=== PATIENT | female | born 1930 | race Caucasian/White ===

== ENCOUNTER 2016-09-25 20:29 | Emergency (ER) | payer OTHER, MEDICARE, BC ==
[~2016-09-25] VITALS: Ht 165.1 cm; Wt 68.7 kg
[2016-09-25 20:42] VITALS: Ht 165.1 cm; Wt 68.7 kg
--- NOTE | 2016-09-25 21:07 | ERPDOC ---
Departure Disposition Decision Date: September 25, 2016 Disposition Decision Time: 21:58 Disposition: 01 DISCHARGED HOME, SELF-CARE Impression Impression Impression: Primary Impression: Distal radius fracture, right Encounter type: initial encounter Fracture type: closed Fracture morphology : unspecified fracture morphology Qualified Codes: S52.501A - Unspecified fracture of the lower end of right radius, initial encounter for closed fracture Severity: Moderate Condition: Stable Seen By: Mid-level only Patient Instructions: Arm Fracture in Adults (ED) Problems/Meds/Labs Reviewed?: Yes Medications reviewed and manag: Yes Additional Instructions: Ice and elevate the wrist. Wear the splint until you follow up with the orthopedist next week. When you get home contact your primary care provider so that you can be evaluated by orthopedist early next week. May use the [place] as needed for severe pain. Follow up care ordered?: Yes Mental Status: Alert Scripts Hydrocodone/Acetaminophen ([place] 5-325 Tablet) 5-325 Tablet 1 TAB PO Q6H Y for PAIN, #12 TAB 0 Refills Prov: FRANCINE HANDY Rosalina BRADSHAW 09/25/16 HPI General Chief Complaint: Upper Extremity Injury Stated Complaint: FELL,RIGHT WRIST PAIN Time Seen by Provider: 20:49 Source: patient Exam Limitations: no limitations HPI Hand/Forearm Initial Comments [place] her connecting flight. She fell and has had pain and bruising in the right wrist since her fall. She did not have it looked at while she was in the airport. This happened about 1330 today. Has had some slight numbness in the right hand since the fall but this is getting better. Occurred At: home Onset: Rapid Duration: 6-12 hrs (8 hours ago) Severity: moderate Location: right: wrist Method of Injury: fell Associated Symptoms: bruising, numbness, pain with extension, pain with flexion , swelling, DENIES: pain with grasp, pallor, redness, weakness Allergies: Coded Allergies: No Known Allergies (Unverified , 09/25/16) Review of Systems Musculoskeletal General: joint pain (right wrist pain), joint swelling (right distal wrist pain ), pain (right wrist pain), tenderness (TTP along the distal radius) Integumentary Skin: color change (ecchymosis on the right inner wrist) Neurological General: numbness, DENIES: tingling, weakness Exam General General Nourishment: well nourished, well developed, appears stated age, no acute distress, adult General Body Habitus: well groomed Vital Signs: RN Vital Signs have been reviewed: Yes, Temperature: 98.3, Source : Oral, Heart Rate: 89, Respiratory Rate: 16, BP: 146/76, Pulse Oximetry: 99 Height (Feet): 5 Height (Inches): 5.00 Fastrak Hand/Forearm Hand/Forearm : Upper Extremity: Right Elbow: extension intact, flexion intact, NOT FOUND: deformity, ecchymosis, erythema, swelling, tender Forearm: pronation intact, supination intact, NOT FOUND: deformity, ecchymosis, erythema, laceration, swelling, tender Wrist: deformity, ecchymosis (right inner wrist), snuff box tenderness, swelling, tender (over the right distal radius ), NOT FOUND: ROM intact (due to pain), erythema, thenar eminence tender Hand: NOT FOUND: deformity, ecchymosis, erythema, swelling, tender Fingers: cap refill <2sec ea digit, soft touch intact, NOT FOUND: deformity , ecchymosis, erythema, impaired abduction, impaired adduction, impaired extension, impaired flexion, impaired grasp, laceration, nail avulsion, rotational deformity, subungual hematoma, swelling, tender Radial Pulse: 2+ Neurologic RN Documented GCS Eye Opening: Verbal: Motor: Total: Differential Diagnoses Considering: Dislocation, Fracture, Sprain, Strain Procedures Procedures Performed Procedures Performed: Splinting Splinting Procedure Splint : Pre-placement NV: FOUND: cap refill < 3 sec, good movement, good sensation Hand-Made Type: orthoglass Splint: sugar-tong Post-placement NV: FOUND: cap refill < 3 sec, good movement, good sensation Applied by: CAREY/NANCY Progress Results/Orders Orders Procedure Category Date Status Time Wrist Right 3-4 Views RAD 09/25/16 Taken Progress Progress She is flying back to [place] on Wednesday. Did discuss xray findings with Sher PATINO. She is ok to wait until early next week to follow up with her PCP and ortho when she flies back. Will have her in sugar tong splint over the weekend. Ice and elevate the arm. [place] as needed for pain. Return to ER over the weekend if severe pain or increasing numbness/weakness in right hand. Xray Xray : Reason for Exam: right wrist injury Xray: Wrist R Interpretation: Abnormal (distal radius fracture with anterior dislocation) FRANCINE HANDY APRN September 25, 2016 21:07
[2016-09-25] MEDS ORDERED: IBUP-1724 PO (21:08)
[2016-09-25] MEDS ORDERED: FLUO40CA7 PO (21:08)
[2016-09-25] MEDS ORDERED: [UNRECOGNIZED DRUG - OTHER] PO (21:09)
[2016-09-25] MEDS ORDERED: OMEP20CA10 PO (21:10)
[2016-09-25] MEDS ORDERED: SIMV20TA6 PO (21:12)
[2016-09-25] MEDS ORDERED: HYDR500C PO (21:15)
--- NOTE | 2016-09-25 21:20 | NUR ---
IMAGING PORTABLE XRAY TO ROOM AT THIS TIME.
[2016-09-25] MEDS ORDERED: HYDR-4246 PO (22:03)
[2016-09-25 22:27] VITALS: BP 164/74; PULSE 89; RESP 16; TEMP 98.3; O2SAT 99
--- NOTE | 2016-09-25 22:27 | NUR ---
DEPART PT GIVEN DI FOR ARM FRACTURE IN ADULTS AND F/U. RX FOR NORCO PROVIDED. PT VERBALIZES UNDERSTANDING OF DI. QUESTIONS ASKED/ANSWERED - DENIES FURTHER QUESTIONS/NEEDS AT THIS TIME. SPLINT IN PLACE. PERSONAL BELONGINGS GATHERED. PT AMBULATED/ESCORTED TO ED EXIT - GAIT STABLE, NO SIGN OF DISTRESS AT THIS TIME.
--- NOTE | 2016-09-27 12:03 | DI ---
Indication: ITS.REASON: fall, wrist pain PROCEDURE: WRIST RIGHT 3-4 VIEWS: Encounter: Initial Comparison: None Findings: Impacted angulated and slightly comminuted distal radial fracture possibly extending into the radiocarpal joint. Mildly displaced ulnar styloid fracture. No additional acute fracture or dislocation. Impression: Closed posttraumatic Colles' and ulnar styloid fractures. .
== END 2016-09-25 22:27 | disposition home or self-care (01) ==
LOC: ED 20:29
DX: S52.531A Colles' fracture of right radius, initial encounter for closed fracture (principal); S52.611A Displaced fracture of right ulna styloid process, initial encounter for closed fracture; W01.0XXA Fall on same level from slipping, tripping and stumbling without subsequent striking against object, initial encounter; Y93.02 Activity, running; Y92.520 Airport as the place of occurrence of the external cause; Y99.8 Other external cause status